=== PATIENT | female | born 1960 | race Caucasian/White ===

== ENCOUNTER 2019-03-21 10:45 | Day surgery (SDC) | payer OTHER ==
[2019-03-14 10:53] VITALS: BP 147/85
[~2019-03-21] VITALS: Ht 162.6 cm; Wt 110.3 kg
[~2019-03-21 10:45] MED LIST: ALBU0.63 NEB; CETI10TA24 PO; CHOL500015 PO; FLUO40CA2 PO; FLUT1AER5 INH; GLUC500T11 PO; LORA-445 PO; VITA1TAB19 PO
[2019-03-21] MEDS ORDERED: LACTATED RINGERS 1,000 ML IV SCH (11:13)
[2019-03-21] MEDS ORDERED: IBUP-1902 PO (11:18)
[2019-03-21 11:19] VITALS: BP 147/85
[2019-03-21] MEDS ORDERED: LIDOCAINE-MPF 1%, 2ML INFIL ONE (11:30)
[2019-03-21] MEDS ORDERED: BUPIVACAINE/PF 0.25% ONE (12:21)
[2019-03-21] MEDS ORDERED: EPINEPHRINE 1 MG/ML, 1ML ONE (12:21)
[2019-03-21] MEDS ORDERED: INDOCYANINE GREEN 25 MG VIAL ONE (12:21)
[2019-03-21] MEDS ORDERED: MIDAZOLAM 1 MG/ML, 2ML ONE (13:19)
[2019-03-21] MEDS ORDERED: FENTANYL PF 250 MCG/5ML ONE (13:20)
[2019-03-21] MEDS ORDERED: APREPITANT 40 MG CAPSULE ONE ×2 (13:33→13:41)
[2019-03-21] MEDS ORDERED: DEXMEDETOMIDINE 200 MCG/2 ML ONE (13:41)
[2019-03-21] MEDS ORDERED: KETAMINE 10 MG/ML, 20ML ONE (13:41)
[2019-03-21] MEDS ORDERED: METHOCARBAMOL 1,000 MG in DEXTROSE 5% 100 ML IV PRN (14:00)
[2019-03-21] MEDS ORDERED: hydrALAzine 20 MG/ML, 1ML IV PRN (14:00)
[2019-03-21] MEDS ORDERED: ALBUTEROL SULFATE 2.5 MG/3 ML NPPB PRN (14:00)
[2019-03-21] MEDS ORDERED: OXYcodone 5 MG/5 ML ORAL.SOL UDC PO PRN (14:00)
[2019-03-21] MEDS ORDERED: LABETALOL 5MG/ML, 20ML IV PRN (14:00)
[2019-03-21] MEDS ORDERED: HALOPERIDOL 5 MG/ML IV PRN (14:00)
[2019-03-21] MEDS ORDERED: PROMETHAZINE 25 MG/ML, 1ML IV PRN (14:00)
[2019-03-21] MEDS ORDERED: ACETAMINOPHEN 325 MG TABLET PO PRN (14:00)
[2019-03-21] MEDS ORDERED: FENTANYL PF 100 MCG/2ML IV PRN (14:00)
[2019-03-21] MEDS ORDERED: HYDROmorphone 2 MG/ML, 1ML IVPush PRN (14:00)
[2019-03-21] MEDS ORDERED: MEPERIDINE/PF 25MG/ML,1ML IVPush PRN (14:00)
[2019-03-21] MEDS ORDERED: MEPERIDINE/PF 100 MG/ML ONE (14:54)
[2019-03-21] MEDS ORDERED: PROPOFOL 10 MG/ML, 20ML ONE (15:45)
[2019-03-21] MEDS ORDERED: LIDOCAINE-MPF 2% ,5ML ONE (15:45)
[2019-03-21] MEDS ORDERED: ONDANSETRON 2MG/ML, 2ML ONE ×2 (15:45→22:05)
[2019-03-21] MEDS ORDERED: CEFOTETAN PMX 2GM/50ML 50 ML ONE (15:45)
[2019-03-21] MEDS ORDERED: SUGAMMADEX 200 MG/2 ML IVPush ONE (15:45)
[2019-03-21] MEDS ORDERED: ROCURONIUM 10MG/ML,5ML ONE (15:45)
[2019-03-21] MEDS ORDERED: DEXAMETHASONE 4 MG/ML, 1ML ONE (15:45)
[2019-03-21] MEDS ORDERED: FENTANYL PF 100 MCG/2ML ONE (16:00)
[2019-03-21] MEDS ORDERED: OXYcodone 5 MG/5 ML ORAL.SOL UDC ONE (16:32)
[2019-03-21] MEDS ORDERED: MEPERIDINE/PF 25MG/ML,1ML ONE (16:50)
[2019-03-21] MEDS ORDERED: ACETAMINOPHEN 650 MG/20.3 ML UDC ONE (17:21)
[2019-03-21] MEDS ORDERED: ONDANSETRON 2MG/ML, 2ML IVPush ONE (22:30)
== END 2019-03-21 22:40 | disposition home or self-care (01) ==
LOC: OUT 10:45 → 4NE 17:37 → OUT 22:40
PROVIDERS: ATTEND Specialist
DX: D27.1 Benign neoplasm of left ovary (principal); D27.0 Benign neoplasm of right ovary; D25.9 Leiomyoma of uterus, unspecified; J44.9 Chronic obstructive pulmonary disease, unspecified; F41.8 Other specified anxiety disorders; E66.01 Morbid (severe) obesity due to excess calories; Z79.899 Other long term (current) drug therapy; Z88.8 Allergy status to other drugs, medicaments and biological substances; Z80.3 Family history of malignant neoplasm of breast; Z80.41 Family history of malignant neoplasm of ovary; Z99.81 Dependence on supplemental oxygen
CPT/HCPCS: 36415; 58552; 86850; 86900; 86923; 88305; 88307; 88329; 88331; 88341; 88342; J0171; J1100; J2175; J2250; J2405; J2704; J3010; J3490; J7120; J8501; S2900; G0378